=== PATIENT | male | born 1970 | race Two or more races ===

== ENCOUNTER 2021-01-30 11:32 | Emergency (ER) | payer OTHER ==
[~2021-01-30] VITALS: Ht 160 cm; Wt 71.8 kg
[2021-01-30] MEDS ORDERED: ONDANSETRON ODT 4 MG TAB.RAPDIS. PO ONE (12:30)
[2021-01-30] MEDS ORDERED: ACETAMINOPHEN 500 MG TABLET PO ONE (12:30)
[2021-01-30] MEDS ORDERED: IBUPROFEN 200 MG TABLET. PO ONE (12:30)
[2021-01-30] MEDS ORDERED: predniSONE 10 MG TABLET PO ONE (12:30)
--- NOTE | 2021-01-30 12:31 | RAD ---
Exam performed: One view chest. Indication: Reason: fever / Spl. Instructions: / History: Date of Service: 01/30/2021 12:07 PM Comparison: None available. Single AP upright portable view chest findings: Cardiomediastinal silhouette is within limits of normal. No acute infiltrates, effusion or pneumotho rax is detected. The bony structures are normal. Impression: No acute cardiopulmonary process is detected. Electronically signed by: Brittany Campos MD (01/30/2021 12:28 PM) [id number]
[2021-01-30] MEDS ORDERED: PRED50TA PO (13:15)
[2021-01-30] MEDS ORDERED: IBUP-1007 PO (13:15)
[2021-01-30] MEDS ORDERED: BENZ100C PO (13:15)
--- NOTE | 2021-01-30 13:15 | PHYS DOC ---
Past Medical History Past Surgical History: No Surgical History ([facility]) Smoking Status: Never Smoker Alcohol Use: None ([facility]) General Adult EDM: Chief Complaint: GENERALIZED BODY ACHES HPI: HPI: Patient is a 51 year old male patient with no significant medical history who presents today complaining of a mild headache, fever, chills, sore throat, body aches, symptoms began on last week. Patient states he received a [employer] Covid vaccine last month. Denies any chest pain or shortness of breath. ([facility]) Review of Systems: Review of Systems: Constitutional: Reports fevers, body aches Eyes: Denies change in visual acuity. [] HENT: Reports sore throat. Denies nasal congestion Respiratory: Denies cough or shortness of breath. [] Cardiovascular: Denies chest pain or edema. [] GI: Denies abdominal pain, nausea, vomiting, bloody stools or diarrhea. [] : Denies dysuria. [] Musculoskeletal: Denies back pain or joint pain. [] Integument: Denies rash. [] Neurologic: Reports headache, denies focal weakness or sensory changes. [] Psychiatric: Denies depression or anxiety. [] ([facility]) Heart Score: C/O Chest Pain: N/A Risk Factors: Risk Factors: DM, Current or recent (<one month) smoker, HTN, HLP, family history of CAD, obesity. Risk Scores: Score 0 - 3: 2.5% MACE over next 6 weeks - Discharge Home Score 4 - 6: 20.3% MACE over next 6 weeks - Admit for Clinical Observation Score 7 - 10: 72.7% MACE over next 6 weeks - Early Invasive Strategies ([facility]) Current Medications: Current Medications Medications (Trade) Dose Ordered Sig/Xander Start Time Stop Time Status Last Admin Dose Admin Acetaminophen (Tylenol) 1,000 mg 1X ONCE 01/30/21 12:30 01/30/21 12:31 DC 01/30/21 12:34 1,000 MG Ibuprofen (Motrin) 600 mg 1X ONCE 01/30/21 12:30 01/30/21 12:31 DC 01/30/21 12:33 600 MG Ondansetron HCl (Zofran Odt) 4 mg 1X ONCE 01/30/21 12:30 01/30/21 12:31 DC 01/30/21 12:35 4 MG Prednisone (Prednisone) 50 mg 1X ONCE 01/30/21 12:30 01/30/21 12:31 DC 01/30/21 12:35 50 MG ([facility]) Allergies: Allergies: Allergies Coded Allergies Type Severity Reaction Last Updated Verified No Known Drug Allergies 01/30/21 No ([facility]) Physical Exam: PE: Constitutional: Well developed, well nourished, no acute distress, non-toxic appearance. [] HENT: Normocephalic, atraumatic, bilateral external ears normal, oropharynx moist, no oral exudates, nose normal. [] Eyes: PERRLA, EOMI, conjunctiva normal, no discharge. [] Neck: Normal range of motion, no tenderness, supple, no stridor. [] Cardiovascular:Heart rate regular rhythm, no murmur [] Lungs & Thorax: Bilateral breath sounds clear to auscultation [] Abdomen: Bowel sounds normal, soft, no tenderness, no masses, no pulsatile ma sses. [] Skin: Warm, dry, no erythema, no rash. [] Back: No tenderness, no CVA tenderness. [] Extremities: No tenderness, no cyanosis, no clubbing, ROM intact, no edema. [] Neurologic: Alert and oriented X 3, normal motor function, normal sensory function, no focal deficits noted. [] Psychologic: Affect normal, judgement normal, mood normal. [] ([facility]) Current Patient Data: Vital Signs: Vital Signs Date Time Temp Pulse Resp B/P (MAP) Pulse Ox O2 Delivery O2 Flow Rate FiO2 01/30/21 11:47 99.9 87 31 140/89 98 Room Air 99.9 ([facility]) EKG: EKG: [] ([facility]) Radiology/Procedures: Radiology/Procedures: []PROCEDURE: CHEST AP ONLY Exam performed: One view chest. Indication: Reason: fever / Spl. Instructions: / History: Date of Service: 01/30/2021 12:07 PM Comparison: None available. Single AP upright portable view chest findings: Cardiomediastinal silhouette is within limits of normal. No acute infiltrates, effusion or pneumothorax is detected. The bony structures are normal. Impression: No acute cardiopulmonary process is detected. Electronically signed by: Brittany Campos MD (01/30/2021 12:28 PM) [id number] DICTATED and SIGNED BY: BRITTANY CAMPOS MD DATE: 01/30/21 [id number] ([facility]) Course & Med Decision Making: Course & Med Decision Making Pertinent Labs and Imaging studies reviewed. (See chart for details) This a 51-year-old male patient presented to the ED today complaining of headache, body aches, chills, sore throat, fevers, symptoms began on . Vitals on arrival to the ED temperature 99.9, heart rate 87, respiration 31.patient appears anxious, O2 sats 98% on room air, blood pressure 140/89. Chest x-ray interpreted by radiologist as negative for any acute findings, negative strep, Covid test pending. Discharge to home with supportive care measures. ([facility]) Dragon Disclaimer: Dragon Disclaimer: This electronic medical record was generated, in whole or in part, using a voice recognition dictation system. ([facility]) Departure Departure Impression: Primary Impression: Person under investigation for COVID-19 Additional Impressions: Fever Qualified Codes: R50.9 - Fever, unspecified Pharyngitis, acute Qualified Codes: J02.9 - Acute pharyngitis, unspecified Headache Qualified Codes: R51.9 - Headache, unspecified Disposition: 01 HOME / SELF CARE / HOMELESS Condition: STABLE Referrals: NO PCP (PCP) follow up with your doctor in 1-2 weeks Patient Instructions: Fever, Adult, Upper Respiratory Infection, Adult, [id number], Viral Pharyngitis Additional Instructions: You were evaluated in the emergency room, your chest x-ray is negative for any acute findings. Your Covid test is pending. We will call you in the course of this week with the results. Please quarantine yourself until you get results from us. In the meantime maintain good hand hygiene, take the prescribed medications as ordered. Come back to the ED at any point symptoms worsen. Scripts Benzonatate (TESSALON PERLE) 100 Mg Capsule 1 CAP PO TID, #30 CAP Prov: [facility] 01/30/21 Ibuprofen (IBUPROFEN) 600 Mg Tablet 600 MG PO PRN Q6HRS PRN for INFLAMMATION, #30 TAB Prov: [facility] 01/30/21 Prednisone (PREDNISONE) 50 Mg Tablet 1 TAB PO DAILY, #5 TAB Prov: [facility] 01/30/21 Attending Signature Attending Signature I have reviewed the PA/MICROFILM PROCESSOR's note and plan of care. I was available for consultation as needed during the patient's visit in the emergency department. I agree with the clinical impression, plan, and disposition. (RYAN HAWKINS DO) YANIMARLENY Phillips APRN Jan 30, 2021 13:15 RYAN HAWKINS DO Jan 30, 2021 16:57
[2021-01-30 14:35] VITALS: BP 109/65
--- NOTE | 2021-01-31 16:37 | NUR ---
IP: Informed pt of positive COVID test and the need to quarantine for 10 days. Pt verbalized understanding.
== END 2021-01-30 14:40 | disposition home or self-care (01) ==
LOC: ER 11:32
DX: U07.1 COVID-19 (principal); R50.9 Fever, unspecified; J02.9 Acute pharyngitis, unspecified; R51.9 Headache, unspecified
CPT/HCPCS: 71045; 87070; 87880; 99284; J7512; U0003; U0005